=== PATIENT | female | born 1965 ===

== ENCOUNTER 2019-07-18 05:10 | Day surgery (SDC) | payer OTHER ==
[~2019-07-18 05:10] MED LIST: ATACAND32 MG PO
[2019-07-18] MEDS ORDERED: MORGIDOX100 MG PO (08:39)
[2019-07-18] MEDS ORDERED: Tylenol #3 PO (08:39)
== END 2019-07-18 13:00 | disposition home or self-care (01) ==
LOC: CIR.AMB 05:10 → ADM 10:30 → CIR.AMB 10:30
DX: D25.0 Submucous leiomyoma of uterus (principal); N84.0 Polyp of corpus uteri